=== PATIENT | female | born 1935 | race Caucasian/White ===

== ENCOUNTER 2019-02-19 09:04 | Day surgery (SDC) | payer OTHER ==
[~2019-02-19] VITALS: Ht 165.1 cm; Wt 80.3 kg
[~2019-02-19 09:04] MED LIST: ALEVE220 MG PO; ASPIR 8181 MG PO; ENDOCET 10-3251 EACH PO; PLAVIX 75 MG TA75 M1 PO; VALIUM10 MG PO; [UNRECOGNIZED DRUG - OTHER] PO
[2019-02-19 10:00] VITALS: BP 150/73
[2019-02-19 17:14] VITALS: BP 139/70
[2019-02-19 19:50] VITALS: BP 116/59
[2019-02-19 23:35] VITALS: BP 122/56
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
[2019-02-20 04:30] VITALS: BP 150/70
[2019-02-20 07:51] VITALS: BP 127/62
[2019-02-20 09:18] VITALS: BP 127/62
[2019-02-20 09:28] VITALS: BP 127/62
[2019-02-20 09:47] VITALS: BP 127/62
--- NOTE | 2019-02-20 09:59 | NUR ---
LATE ENTRY: PATIENT WAS BROUGHT TO UNIT AT 1715 FROM SURGERY. DRESSING IN PLACE. PT ALERT XS 4. NO PAIN AT ADMIT TO UNIT. DINNER TO BE SERVED PATIENT STATES IS HUNGRY. NO RESP DISTRESS.
--- NOTE | 2019-02-20 10:07 | NUR ---
DISCHARGE PAPERS GONE OVER WITH PATIENT SIGNED AND COPY IN CHART. IV ACSESS DCD. SURGICAL SITE DRESSING CHANGED. PT STATES NO PAIN NO RESP DISTRESS. PT IS DISCHARGING TO [facility] THIS MORNING SON TO [facility].
[2019-02-20 11:31] VITALS: BP 127/62
--- NOTE | 2019-02-20 15:09 | O ---
[facility] [place] [address] OPERATIVE REPORT Name: ERIC MYERS Room #: [place] [facility] [place].#: [id number] Admission: 02/19/19 Attend Phys: Keyon Lindo MD Discharge: 02/20/19 Date of : 37 Report #: [id number] THIS REPORT FOR: //name// CC: Keyon Lutz DATE OF SERVICE: 02/19/2019 PREOPERATIVE DIAGNOSES: Right knee medial meniscus tear and lateral meniscus tear with moderate degenerative change. POSTOPERATIVE DIAGNOSES: Right knee medial meniscus tear and lateral meniscus tear with moderate degenerative change. PROCEDURE: Right knee arthroscopy with debridement of medial meniscus tear and lateral meniscus tear and debridement of some generalized degenerative chondromalacia. SURGEON: Keyon Lindo MD INDICATIONS: This 83-year-old female is fully active and fully independent. She complains of progressive right knee pain. Clinical exam and MRI confirmed tearing of both the medial and lateral meniscus as well as some mild generalized degenerative change. We have discussed treatment options and she has not seen much improvement with anti-inflammatories and injections. She prefers to avoid total joint replacement and would like to try arthroscopic debridement. She understands that she may have ongoing symptoms and may eventually require knee replacement. She and her family have discussed this at length and they prefer an arthroscopic debridement at this point. DESCRIPTION OF PROCEDURE: The patient was taken to the operating room where she was placed under brief general anesthetic. The right knee and leg were meticulously prepped and draped and a thigh tourniquet inflated to 300 mmHg. A lateral suprapatellar inflow cannula was placed and the knee was inflated. The arthroscope and probe were introduced. Various compartments were sequentially visualized and documented with arthroscopic photography. There was tearing of the medial meniscus, which was debrided removing about the inner 1/2, the outer 1/2 remained intact and stable. There was moderate degenerative damage on the medial femoral condyle with grade 2 to grade 3 damage and a few areas were very localized grade 4 damage. These areas were gently debrided to a smooth even margin. The corresponding surface on the tibial plateau showed less severe damage and only limited debridement there was necessary. The lateral compartment reveals similar tearing of the lateral meniscus involving the inner 1/2, which was debrided. The outer 1/2 was in good shape and was left intact. There was less severe damage on the lateral femoral [address] [address] OPERATIVE REPORT Name: ERIC MYERS Room #: DEP [facility].Omkar.#: [id number] Admission: 02/19/19 Attend Phys: Keyon Lindo MD Discharge: 02/20/19 Date of : 37 Report #: [id number] condyle with grade 2 damage in several areas which was debrided. The patella also revealed some grade 2 to very minor grade 3 damage, which was debrided. The suprapatellar pouch revealed some synovial hypertrophy and loose cartilage debris, which was evacuated. The intercondylar notch revealed the cruciate ligaments to be intact and stable. The entire knee was further copiously irrigated. All excess fluid was evacuated from the knee. The knee was then injected with 80 mg of Depo-Medrol and 20 mL of 0.5% Marcaine with epinephrine. The puncture sites were closed with interrupted nylon suture. Sterile dressing was applied. The patient was awakened and returned to recovery room in good condition. She and her family note that they are hoping for discharge home today if possible. We will see how she does in the recovery room if she is stable and comfortable, then discharge home with family later today may be feasible. <ELECTRONICALLY SIGNED> By: Keyon Lindo MD 02/20/19 1509 [id number] Keyon Lindo MD /nt
== END 2019-02-20 11:33 | disposition home or self-care (01) ==
LOC: OR 09:04 → TBA 09:05 → OR 12:43 → 4E 16:59 → ENTRNSPT 02-20 10:50 → EDTRNSPTSTS 02-20 10:52 → OR 02-20 11:33
DX: M23.331 Other meniscus derangements, other medial meniscus, right knee (principal); M23.361 Other meniscus derangements, other lateral meniscus, right knee; M94.261 Chondromalacia, right knee; M67.261 Synovial hypertrophy, not elsewhere classified, right lower leg; M23.41 Loose body in knee, right knee; J43.9 Emphysema, unspecified; K21.9 Gastro-esophageal reflux disease without esophagitis; I25.10 Atherosclerotic heart disease of native coronary artery without angina pectoris; Z90.49 Acquired absence of other specified parts of digestive tract; Z87.891 Personal history of nicotine dependence; Z87.442 Personal history of urinary calculi; Z90.710 Acquired absence of both cervix and uterus; Z98.890 Other specified postprocedural states; Z96.611 Presence of right artificial shoulder joint; Z96.612 Presence of left artificial shoulder joint; Z98.41 Cataract extraction status, right eye; Z98.42 Cataract extraction status, left eye; Z96.652 Presence of left artificial knee joint; Z79.899 Other long term (current) drug therapy; Z86.19 Personal history of other infectious and parasitic diseases; Z88.2 Allergy status to sulfonamides; Z88.6 Allergy status to analgesic agent; Z88.8 Allergy status to other drugs, medicaments and biological substances; Z79.82 Long term (current) use of aspirin
CPT/HCPCS: 10783; 50010; 50101; 50405; 51038; 54170; 56526; 57103; 62110; 62900; 70005